=== PATIENT | female | born 1990 | race Caucasian/White ===

== ENCOUNTER 2023-03-13 18:23 | Emergency (ER) | payer OTHER ==
[~2023-03-13] VITALS: Ht 165.1 cm; Wt 65.8 kg
[2023-03-13 18:50] VITALS: BP_SYST 96; PULSE 116; RESP 18; TEMP 98.1; O2SAT 100
[2023-03-13] MEDS ORDERED: NACL 0.9% 1,000 ML IV ONE ×2 (19:30)
[2023-03-13] MEDS ORDERED: ONDANSETRON HCL 4 MG/2 ML VIAL IVP ONE (19:30)
[2023-03-13] MEDS ORDERED: MORPHINE 4 MG INJ. 4 MG/ML VIAL IVP ONE (19:30)
[2023-03-13 21:17] VITALS: BP_SYST 126; PULSE 116; RESP 18; TEMP 98.1; O2SAT 100
[2023-03-13 21:40] LABS: BASOPHILS # (AUTO) 0.1 K/uL (0.0-0.2); BASOPHILS % (AUTO) 1.9 % (0.0-2.0); EOSINOPHILS # (AUTO) 0.4 K/uL (0.0-0.4); EOSINOPHILS % (AUTO) 5.7 % (0.0-4.0); HEMATOCRIT 40.6 % (36-48); HEMOGLOBIN 13.2 g/dL (12.0-16.0); LYMPHOCYTES # (AUTO) 2.8 K/uL (1.0-5.5); LYMPHOCYTES % (AUTO) 40.6 % (20.5-51.5); MEAN CORPUSCULAR HEMOGLOBIN 25 pg (27-31); MEAN CORPUSCULAR HGB CONC 33 % (32-36); MEAN CORPUSCULAR VOLUME 77 fL (79.0-98.0); MONOCYTES # (AUTO) 0.7 K/uL (0.0-1.0); MONOCYTES % (AUTO) 9.6 % (1.7-9.3); NEUTROPHILS % (AUTO) 42.2 % (40.0-70.0); PLATELET COUNT (AUTO) 337 K/uL (130-430); RED BLOOD CELL COUNT(AUTO) 5.25 MIL/uL (4.2-6.2); RED CELL DISTRIBUTION WIDTH 20.4 % (9.0-15.0)
[2023-03-13 21:56] LABS: ANION GAP 12 (5-15); CALCIUM 9.8 mg/dL (8.4-11.0); CARBON DIOXIDE 24 mmol/L (23-29); CHLORIDE 96 mmol/L (98-107); CREATININE 0.75 mg/dL (0.55-1.30); GFR AFRICAN AMERICAN 117 mL/min (>90); GLUCOSE 308 mg/dL (74-106); POTASSIUM 4.3 mmol/L (3.5-5.1); SODIUM SERUM 132 mmol/L (136-145); UREA NITROGEN, BLOOD 9 mg/dL (8-21)
[2023-03-13 22:00] LABS: ALANINE AMINOTRANSFERASE 43 U/L (12-78); ASPARTATE AMINOTRANSFERASE 21 U/L (10-37); LIPASE 26 U/L (16-77); TOTAL BILIRUBIN 1.1 mg/dL (0.0-1.0); TOTAL PROTEIN, SERUM 8.1 g/dL (6.4-8.3)
[2023-03-13 22:02] LABS: ACETONE, SERUM TRACE (NEGATIVE); GFR NON AFRICAN-AMERICAN 96 mL/min (>90)
[2023-03-13] MEDS ORDERED: ONDA-8 TL (22:12)
[2023-03-14 00:20] LABS: BILIRUBIN,URINE NEGATIVE (NEGATIVE); BLOOD, URINE 1+ (NEGATIVE); COLOR,URINE YELLOW (YELLOW); GLUCOSE,URINE 3+ (NEGATIVE); KETONES,URINE 3+ (NEGATIVE); NITRITE, URINE POSITIVE (NEGATIVE); PROTEIN URINE NEGATIVE (NEGATIVE); UROBILINOGEN,URINE 0.2 (0.2-1.0)
[2023-03-14 00:29] LABS: CLARITY/URINE SLIGHTLY CLOUDY (CLEAR); LEUKOCYTE ESTERASE ,URINE 1+ (NEGATIVE)
[2023-03-14 00:32] LABS: BACTERIA,URINE MODERATE /HPF (None Seen); WBC,URINE 20-50 /HPF (0-3)
== END 2023-03-13 23:09 | disposition home or self-care (01) ==
LOC: SED 18:23
DX: E11.65 Type 2 diabetes mellitus with hyperglycemia (principal); R53.1 Weakness; R10.13 Epigastric pain; R11.2 Nausea with vomiting, unspecified; Z79.899 Other long term (current) drug therapy
CPT/HCPCS: 99284; 96374; 71045; 96375; 80053; 81001; 82009; 83690; 85025; 87086; 36415; 82803; 81000; 81015; J2405; J2270